=== PATIENT | female | born 1955 | race Caucasian/White ===

== ENCOUNTER 2020-12-30 01:51 | Outpatient (CLI) | payer MEDICARE, MEDICAID, SELFPAY ==
[2020-12-30 12:57] LABS: Source Nasal/Nares
[2020-12-30 15:24] LABS: COVID-19 PCR Negative (Negative)
== END 2020-12-30 01:52 | disposition home or self-care (01) ==
LOC: LBO 01:51
PROVIDERS: PCP Family Medicine; Visit Provider Ophthalmology
DX: Z20.822 Contact with and (suspected) exposure to COVID-19 (principal); Z01.818 Encounter for other preprocedural examination
CPT/HCPCS: 87635

== ENCOUNTER 2021-01-13 01:41 | Outpatient (CLI) | payer MEDICARE, MEDICAID, SELFPAY ==
[2021-01-13 16:11] LABS: Source Nasal/Nares
[2021-01-13 21:17] LABS: COVID-19 PCR Negative (Negative)
== END 2021-01-13 01:42 | disposition home or self-care (01) ==
LOC: LBO 01:42
PROVIDERS: PCP Family Medicine; Visit Provider Ophthalmology
DX: Z20.822 Contact with and (suspected) exposure to COVID-19 (principal); Z01.818 Encounter for other preprocedural examination
CPT/HCPCS: 87635

== ENCOUNTER 2021-01-16 07:53 | Day surgery (SDC) | payer MEDICARE, MEDICAID, SELFPAY ==
[2021-01-16 08:33] VITALS: BP 133/69; PULSE 84; RESP 15; TEMP 36.6; O2SAT 97
[2021-01-16] MEDS: Tropicam./Phenyleph. (1/2.5%) 5 ML BTL OD ×3 (08:43→08:53)
--- NOTE | 2021-01-16 08:44 | W.ANESPRE ---
General Info Date of Service Date Performed: 01/16/21 Height: 5 ft 4 in Weight: 101.6 kg Body Mass Index (BMI): 38.4 Surgical Procedure: Operation Date: 01/16/21 10:40 Proposed Procedures Side Surgeon p Cataract Extraction with IOL Implant Right Denver Kang MD Meds Allergies and Home Medications Allergies Allergy/AdvReac Type Severity Reaction Status Date / Time codeine Allergy Severe Other (See Unverified 01/16/21 08:30 Comment) Home Medication Medication Instructions Recorded clonazepam 0.5 mg PO HS 12/29/20 fluticasone propionate 2 spray INTRANASAL DAILY 12/29/20 lamotrigine 200 mg PO HS 12/29/20 loratadine 10 mg PO HS 12/29/20 losartan 50 mg PO HS 12/29/20 polyethylene glycol 3350 17 g PO DAILY 12/29/20 quetiapine 800 mg PO HS 12/29/20 verapamil 180 mg PO HS 12/29/20 Current Visit Medications: Current Medications Generic Name Dose Route Start Last Admin Trade Name Freq PRN Reason Stop Dose Admin Acetaminophen 1,000 mg 01/16/21 06:00 Acetaminophen 500 Mg Tab PO Q4H PRN PRN Miscellaneous Medication 0 ml 01/16/21 06:00 Prednisolone 1%, Moxifloxacin 0.5%, Nepafenac 0.1% 5ml Btl OD DIRECTED OMAYRA Miscellaneous Medication 0 ml 01/16/21 06:00 01/16/21 08:43 Tropicam./Phenyleph. (1/2.5%) 5 Ml Btl OD 1 drp DIRECTED OMAYRA Administration Tetracaine HCl 0 ml 01/16/21 06:00 Tetracaine 0.5% 4 Ml Btl OD DIRECTED OMAYRA PFSH Active Problems Active Problems: Problem Status Onset Code Nuclear sclerotic cataract of left eye H25.12 Medical History Medical History Bilateral cataracts History of asthma per pt. History of esophageal dilatation Hx of cancer of uterus Hypertensive disorder Migraine Surgical History Surgical History (Updated 01/16/21 @ 08:29 by Nayan Matos) History of esophagogastroduodenoscopy (EGD) Hx of hysterectomy Hx of tonsillectomy Tobacco Smoking/Tobacco Use Status: Former Tobacco Use Alcohol Alcohol Intake: never Substance Use Substance use: Never Substance use type: does not use Vital Signs and Lab Results Vital Signs Most Recent Vital Signs in EMR: Most Recent Vital Signs Temp Pulse Resp BP Pulse Ox 36.6 C 84 15 133/69 97 01/16/21 08:33 01/16/21 08:33 01/16/21 08:33 01/16/21 08:33 01/16/21 08:33 Lab Results Blood Type / Crossmatch: No Data to Display Complete Blood Count: No Data to Display Complete Metabolic Panel: No Data to Display Liver Function Panel: No Data to Display Coagulation Panel: No Data to Display Cardiac Panel: No Data to Display Arterial Blood Gas: No Data to Display Venous Blood Gas: No Data to Display Pancreas Panel: No Data to Display Thyroid Panel: No Data to Display Infectious Disease: Coronavirus (COVID-19)(PCR) Negative (Negative) 01/13/21 10:02 01/13/21 Coronavirus 2019 Source Nasal/Nares 01/13/21 10:02 01/13/21 Blood Cultures: No Data to Display Toxicology Panel: No Data to Display Anesthesia Assessment and Plan Anesthesia History Personal History: No History of Anesthesia Complications Family History: No Family History of Anesthesia Complications Exercise Tolerance Exercise Tolerance: Metabolic Equivalents>4 Pertinent Negatives Pertinent Negatives: No Symptoms of GERD, No Major Cardiovascular Symptoms or Complaints and No History of CVA/TIA Cardiac & Pulmonary Exam Cardiac Exam: Normal S1/S2 Heart Sounds Pulmonary Exam: Clear Bilateral Breath Sounds Airway Exam Known Difficult Airway: No Mallampati Class: 2 Mouth Opening: Narrow (< 3cm) Thyromental Distance: Greater than 3 cm Neck Range of Motion: Full ROM Neck Circumference: Normal Teeth Condition: Loose or Chipped and Other (missing lower 42,41) ASA Classification ASA Score: ASA 3 Emergency Case?: No NPO Status NPO Status: NPO Clears >2 hours, Solids >8 hours Anesthesia Plan Resuscitation Status: Full Code Anesthesia Technique: MAC Anesthesia Airway Planned: Natural Airway Monitors Used: Standard Monitors
--- NOTE | 2021-01-16 11:15 | POEE_ITS ---
History of Present Illness History of Present Illness Chief Complaint: Progressive decreased vision in both eyes Narrative: The patient is a 65-year-old lady with history of hyperopia who has noted progressive decreased vision in both eyes over the past several months. She notes significant difficulty with watching TV and also reading. FOR[facility]LY [facility] Medical History Bilateral cataracts History of asthma per pt. History of esophageal dilatation Hx of cancer of uterus Hypertensive disorder Migraine Surgical History (Updated 01/16/21 @ 08:29 by Nayan Matos) History of esophagogastroduodenoscopy (EGD) Hx of hysterectomy Hx of tonsillectomy Social History Smoking/Tobacco Use Status: Former Tobacco Use Quit Date: 03/25/99 Smoking risk assessment performed?: Yes Alcohol Intake: never Drug use: Never Substance use type: does not use Do you feel safe at home: Yes Do you feel safe in your relationship?: Yes Meds Allergies and Home Medications Allergies Allergy/AdvReac Type Severity Reaction Status Date / Time codeine Allergy Severe Other (See Unverified 01/16/21 08:30 Comment) Home Medications Medication Instructions Recorded Confirmed Type clonazepam 0.5 mg PO HS 12/29/20 01/16/21 History fluticasone propionate 2 spray INTRANASAL DAILY 12/29/20 01/12/21 History lamotrigine 200 mg PO HS 12/29/20 01/16/21 History loratadine 10 mg PO HS 12/29/20 01/16/21 History losartan 50 mg PO HS 12/29/20 01/16/21 History polyethylene glycol 3350 17 g PO DAILY 12/29/20 01/12/21 History quetiapine 800 mg PO HS 12/29/20 01/16/21 History verapamil 180 mg PO HS 12/29/20 01/16/21 History Note: NOTE:: The details of the planned surgery, including the risks, indications,limitations,expectations,outcome and possible complications were explained to the patient. The patient understands the complications including, but not limited to: infection, hemorrhage, posterior dislocation of the lens or nuclear fragments which may require the intervention of a vitreoretinal surgeon, possible loss of the eye, or from anesthetic complications. The patient has been made aware of the option of not having surgery, that vision following surgery may not be equal to that prior to surgery, and that the planned surgery may not achieve the intended results. Following this discussion, which the patient appeared to understand, the patient wishes to proceed with cataract surgery with lens implantation of the affected eye to improve and maximize vision.
--- NOTE | 2021-01-16 11:16 | W.PREOPHP ---
Date of service: 01/16/21 Time of Service: 11:16 Assessment and Plan Assessment and plan (1) Nuclear sclerotic cataract of left eye: Status: Acute Assessment and plan: Visually significant nuclear cataract, left eye. Plan is for cataract extraction with lens implantation, left eye History of Present Illness History of Present Illness Chief Complaint: Progressive decreased vision in both eyes Narrative: The patient is a 65-year-old lady with history of high hyperopia who notes progressive decreased vision in both eyes over the past several months. She notes significant difficulty with blurred vision while watching TV and also with reading. She feels her distance vision is okay. However, she is significantly bothered by the blurred vision that she desires cataract surgery and attempt to improve and maximize her vision. Review of Systems All systems reviewed & are unremarkable except as noted in HPI and below PFSH Medical History Bilateral cataracts History of asthma per pt. History of esophageal dilatation Hx of cancer of uterus Hypertensive disorder Migraine Surgical History (Updated 01/16/21 @ 08:29 by Nayan Matos) History of esophagogastroduodenoscopy (EGD) Hx of hysterectomy Hx of tonsillectomy Social History Smoking/Tobacco Use Status: Former Tobacco Use Quit Date: 03/25/99 Smoking risk assessment performed?: Yes Alcohol Intake: never Drug use: Never Substance use type: does not use Do you feel safe at home: Yes Do you feel safe in your relationship?: Yes Meds Allergies and Home Medications Allergies Allergy/AdvReac Type Severity Reaction Status Date / Time codeine Allergy Severe Other (See Unverified 01/16/21 08:30 Comment) Home Medications Medication Instructions Recorded Confirmed Type clonazepam 0.5 mg PO HS 12/29/20 01/16/21 History fluticasone propionate 2 spray INTRANASAL DAILY 12/29/20 01/12/21 History lamotrigine 200 mg PO HS 12/29/20 01/16/21 History loratadine 10 mg PO HS 12/29/20 01/16/21 History losartan 50 mg PO HS 12/29/20 01/16/21 History polyethylene glycol 3350 17 g PO DAILY 12/29/20 01/12/21 History quetiapine 800 mg PO HS 12/29/20 01/16/21 History verapamil 180 mg PO HS 12/29/20 01/16/21 History Exam Eyes Other: Corrected visual acuity is 20/200 OD, 20/60 OS. Intraocular pressure is 18, 17 OS. Dense bilateral nuclear cataracts are present OU. Disc cupping is 0.3 OU with normal vessels, macula, peripheral retina and vitreous. Resp Auscultation: clear to auscultation bilaterally Cardio Rate: regular rate Rhythm: regular rhythm Results Last Vital Signs Temp 36.6 C 01/16/21 08:33 Pulse 84 01/16/21 08:33 Resp 15 01/16/21 08:33 BP 133/69 01/16/21 08:33 Pulse Ox 97 01/16/21 08:33
[2021-01-16] MEDS: Tetracaine 0.5% 4 ML BTL OD (11:28)
[2021-01-16] MEDS: Lidocaine 2% Jelly 6 ML SYR (11:28)
[2021-01-16] MEDS: Povidone-Iodine Ophth 30 ML BTL (11:35)
[2021-01-16] MEDS: Balanced Salt Soln.-PLUS 500 ML BAG (11:36)
[2021-01-16] MEDS: Duovisc Viscoelastic System EACH 1 EACH (11:36)
[2021-01-16] MEDS: Lidocaine 1% Pres-Free 5 ML VIAL (11:37)
[2021-01-16 11:38] VITALS: BMI 38.4
[2021-01-16 11:56] VITALS: BP 138/75; PULSE 84; RESP 16; TEMP 36.5; O2SAT 95
--- NOTE | 2021-01-16 11:57 | ROE_ITS ---
Date of service: 01/16/21 Time of Service: 11:58 Operative Note Operative Note DATE OF PROCEDURE: 01/16/21 PRE-OP DIAGNOSIS: Nuclear cataract, left eye High hyperopia, left eye POST-OP DIAGNOSIS: same PROCEDURE: Cataract extraction using phacoemulsification with intraocular lens implant, left eye SURGEON: Denver Kang ANESTHESIA TYPE: Local By Surgeon and MAC Refer to Anesthesia Record PATHOLOGY: none sent COMPLICATIONS: None Patient was transported to: same day Patient's condition: stable Implants: [employer] Tecnis [id number] Indications: Progressive decreased vision due to cataract, left eye Procedure Description: CATARACT SURGERY OPERATIVE REPORT PREOPERATIVE DIAGNOSIS: 1. Nuclear cataract, left eye 2. High hyperopia, left eye POSTOPERATIVE DIAGNOSIS: Same OPERATION: 1. Cataract extraction using phacoemulsification with posterior chamber intraocular lens implant, left eye. IOL: IOL Pulmonary Disease Specialist/Model: [employer] / ARI Tecnis [id number] IOL Power: + 27.5 diopters IOL Serial Number: [id number] Optic Diameter: 6.0 mm Haptic/Overall Diameter: 13.0 mm PHACO INFO: [employer] Vision System with OZil and [employer] Cumulative Dispersed Energy (CDE): 15.90 seconds SURGEON: Denver Kang MD, SOLA ANESTHESIA: Monitored A [facility] (MAC), with local sub-tenon's anesthetic infiltration COMPLICATIONS: None SPECIMENS: None INDICATIONS FOR PROCEDURE: The patient is a 65-year-old lady with history of diminished visual acuity in her left eye. She is noted to have a dense nuclear cataract in the left eye. She has a history of high hyperopia. Moderately shallow anterior chambers are present OU. The option of cataract surgery was offered to the patient and she wished to proceed. PROCEDURE: The correct surgical eye was identified and marked as the left eye and the pupil was dilated in the preoperative area using mydriatics and cycloplegics. The dilated pupil size was 6.5 mm. Oral sedation was administered in the form of an Imprimis MKO Melt (midazolam 3mg/ketamine 25mg/ondansetron 2mg). The patient was brought to the operating room where cardiopulmonary monitoring was instituted and surgical time-out was performed, confirming the correct operative eye and IOL power. Topical anesthesia was administered and ophthalmic povidone-iodine 5% was instilled into the conjunctival fornices. Lidocaine gel was applied to the cornea and the tatyana-ocular area was prepped with Betadine 10% solution and draped in the usual sterile fashion for intraocular surgery, including an aperture drape. A Tegaderm transparent film dressing was cut in half and used to cover the lashes and lid margins. Care was taken to sequester the lashes and lid margins under the Tegaderm dressing. A lid speculum was placed between the lids of the operative eye and the Yasemin-Alia operating microscope was maneuvered into position. Elen scissors were then used to make a conjunctival buttonhole approximately 6mm posterior to the limbus in the inferonasal quadrant. Blunt dissection was carried out to expose bare sclera, and a blunt-tipped sub-tenon?s anesthesia cannula was introduced and passed posteriorly along the globe where non-p reserved plain lidocaine was injected into posterior sub-Tenon?s space. A sideport knife was used to make a paracentesis port superiorly/superiortemporally. Intraocular phenylephrine/lidocaine was injected int the anterior chamber.. The anterior chamber was filled with viscoelastic. A 2.4mm keratome knife was used to create a half-thickness groove at the limbus and then to construct a three-plane near-clear corneal tunnel extending 2.0mm into clear cornea at the 3:00 position. A flap was raised on the anterior capsule and capsulorhexis forceps were used to complete a continuous curvilinear capsulorhexis of 5.0 mm. Balanced salt solution was then used to perform cortical cleaving hydrodissection and nuclear hydrodelineation until the lens could be freely rotated within the capsular bag. The lens nucleus was then disassembled and removed within the capsular bag and iris plane using phacoemulsification. Residual cortical material was removed using the 45-degree angled silicone I/A tip with 0.3mm port. The posterior capsule was carefully polished to remove as much residual lens epithelial cells as safely possible. The capsular bag was then inflated and the anterior chamber deepened with viscoelastic. The lens implant described above was inserted into the capsular bag using the ARI [place] Injector. A Kuglen hook was used to dial the IOL into position. Residual viscoelastic was then removed first from posterior to the IOL, then from the anterior chamber using the I/A handpiece. The lens implant was noted to center nicely within the capsular bag. The incisions were stromally hydrated, and the anterior chamber was reformed using BSS. Then 0.5cc of moxifloxacin 1.0mg/ml were injected into the capsular bag and anterior chamber. The incisions were checked with a Weck spear and found to be secure. Several drops of ophthalmic povidone-iodine 5% were then applied to the eye followed by two drops of Imprimis combination prednisolone/moxifloxacin/nepafenac solution. The drapes were removed and a clear plastic protective eye shield was placed over the eye. The patient was then returned to Same Day Surgery in stable condition.
--- NOTE | 2021-01-16 11:57 | PDOC.DSDIS_ITS ---
Discharge Plan Disposition Patient Disposition: HOME Condition: Good Discharge Details Attending Provider: Denver Kang Primary Care Provider: Morgan Graff [facility] and New Rx's Prescriptions: No Action losartan 50 mg tablet 50 mg PO HS RF: 0 lamotrigine 200 mg tablet 200 mg PO HS RF: 0 clonazepam 0.5 mg tablet 0.5 mg PO HS RF: 0 verapamil 180 mg tablet extended release 180 mg PO HS RF: 0 polyethylene glycol 3350 17 gram/dose powder 17 g PO DAILY RF: 0 fluticasone propionate 50 mcg/actuation spray,suspension 2 spray INTRANASAL DAILY RF: 0 loratadine 10 mg tablet 10 mg PO HS RF: 0 quetiapine 400 mg tablet 800 mg PO HS RF: 0 Discharge Instructions Stand Alone Forms: Post-op Topical Cataract, Zak Sharma ([facility]U) Discharge Orders Discharge Orders: Discharge Order (Routine); Ordered 01/16/21 Ordered By: Denver Kang DS: Diagnosis Discharge Diagnosis (1) Nuclear sclerotic cataract of left eye: Status: Resolved
[2021-01-16 12:25] VITALS: BP 137/76; PULSE 91; RESP 16; TEMP 36.4; O2SAT 95
--- NOTE | 2021-01-16 12:39 | W.ANESPOSTOP ---
Postoperative Evaluation Date, Time and Location Date Performed: 01/16/21 Time Performed: 12:25 Patient Location: Day Surgery Unit Vital Signs Most Recent Imported Vital Signs: Most Recent Vital Signs Temp Pulse Resp BP Pulse Ox 36.4 C L 91 H 16 137/76 95 01/16/21 12:25 01/16/21 12:25 01/16/21 12:25 01/16/21 12:25 01/16/21 12:25 Pain Score Most Recent Pain Score: Most Recent Pain Score Pain Level 0 01/16/21 12:25 Assessment Mental Status: Awake (Alert & Oriented to Patient Baseline) Airway and Respiratory Function: Patent airway with normal (patient baseline) respiratory exam Cardiovascular Function: Hemodynamically Stable Hydration Status: Adequately Hydrated Nausea & Vomiting: No Nausea or Vomiting Pain: Pt. Denies Any Pain Peripheral Nerve Block: Other (Local by Dr. Kang)
== END 2021-01-16 12:26 | disposition home or self-care (01) ==
PROVIDERS: PCP Family Medicine; Visit Provider Ophthalmology
PROC: (CPT 66984; principal; 2021-01-16 10:30)
DX: H25.12 Age-related nuclear cataract, left eye (principal); J45.909 Unspecified asthma, uncomplicated; I10 Essential (primary) hypertension; G43.909 Migraine, unspecified, not intractable, without status migrainosus
CPT/HCPCS: 66984; V2632